=== PATIENT | male | born 1940 | race Hispanic/Latino ===

== ENCOUNTER 2017-01-12 05:27 | Emergency (ER) | payer MEDICARE ==
[2017-01-12 05:38] VITALS: BMI 32.1
--- NOTE | 2017-01-12 06:01 | ED PDOC ---
Arrival/HPI - General Chief Complaint: Abdominal Pain Time Seen by Provider: 01/12/17 05:53 Historian: Patient - History of Present Illness Narrative History of Present Illness (Text): 01/12/17 06:00 Yvon Spangler is a 76 year old male, whose past medical history inclydes diabetes, CHF, hyperlipidemia, and CAD with stenting, who presents to the Emergency department complaining of abdominal pain. Patient states he woke up this morning and attempted to pass his bowel but was unable to. Patient notes he is chronically constipated and only moves his bowel about 1-2 times a week. Patient states he is also experiencing associated lower abdominal pain. Patient notes he has not urinated since yesterday morning. Patient denies any fever, chills, chest pain, shortness of breath, nausea, vomiting, diarrhea, back pain, neck pain, headache, dizziness, or any other complaints. Time/Duration: Other (this morning) Symptom Onset: Gradual Symptom Course: Unchanged Activities at Onset: Rest, Light Context: Home Past Medical History - Provider Review Nursing Documentation Reviewed: Yes - Cardiac Hx Cardiac Disorders: Yes Hx Hypertension: Yes Hx Pacemaker: No Other/Comment: cardiac stents - Pulmonary Hx Respiratory Disorders: No - Neurological Hx Neurological Disorder: No Hx Paralysis: No - HEENT Hx HEENT Disorder: No - Renal Hx Renal Disorder: No - Endocrine/Metabolic Hx Endocrine Disorders: Yes Hx Diabetes Mellitus Type 2: Yes - Hematological/Oncological Hx Blood Disorders: No Hx Blood Transfusions: No Hx Blood Transfusion Reaction: No - Integumentary Hx Dermatological Disorder: No - Musculoskeletal/Rheumatological Hx Musculoskeletal Disorders: No - Gastrointestinal Hx Gastrointestinal Disorders: No - Genitourinary/Gynecological Hx Genitourinary Disorders: Yes Hx Prostate Problems: Yes - Psychiatric Hx Psychophysiologic Disorder: No Hx Emotional Abuse: No Hx Physical Abuse: No Hx Substance Use: No - Anesthesia Hx Anesthesia Reactions: No Hx Malignant Hyperthermia: No - Suicidal Assessment Feels Threatened In Home Enviroment: No Family/Social History - Physician Review Nursing Documentation Reviewed: Yes Family/Social History: No Known Family HX Smoking Status: Unknown If Ever Smoked Hx Alcohol Use: Yes (OCC BEER) Hx Substance Use: No Allergies/Home Meds Allergies/Adverse Reactions: Allergies No Known Allergies Allergy (Verified 09/19/15 12:48) Home Medications: Home Meds Medication Instructions Recorded Confirmed Aspirin [Ecotrin] 81 mg PO DAILY 01/12/17 01/12/17 Atorvastatin [Lipitor] 40 mg PO DAILY 01/12/17 01/12/17 Clopidogrel [Plavix] 75 mg PO DAILY 01/12/17 01/12/17 Furosemide [Lasix] 40 mg PO DAILY 01/12/17 01/12/17 Krill/Om-3/Dha/Epa/Phospho/Ast 1 each PO DAILY 01/12/17 01/12/17 [Krill Oil 1,000 mg Softgel] Lisinopril [Zestril] 2.5 mg PO DAILY 01/12/17 01/12/17 metFORMIN [glucOPHAGE] 500 mg PO BID 01/12/17 01/12/17 Review of Systems - Physician Review All systems were reviewed & negative as marked: Yes - Review of Systems Constitutional: Normal. absent: Fevers Eyes: Normal ENT: Normal Respiratory: Normal. absent: SOB, Cough Cardiovascular: Normal. absent: Chest Pain Gastrointestinal: Abdominal Pain, Constipation Genitourinary Male: Other (+urinary retention) Musculoskeletal: Normal. absent: Back Pain, Neck Pain Skin: Normal. absent: Rash Neurological: Normal. absent: Headache, Dizziness Endocrine: Normal Hemo/Lymphatic: Normal Psychiatric: Normal Physical Exam Vital Signs Reviewed: Yes Vital Signs Temp Pulse Resp BP Pulse Ox 01/12/17 08:50 78 18 112/79 99 01/12/17 07:20 98.9 F 80 20 109/77 99 01/12/17 05:54 98.2 F 102 H 15 110/72 95 Temperature: Afebrile Blood Pressure: Normal Pulse: Regular Respiratory Rate: Normal Appearance: Positive for: Well-Appearing, Non-Toxic, Comfortable Pain Distress: None Mental Status: Positive for: Alert and Oriented X 3 - Systems Exam Head: Present: Atraumatic, Normocephalic Pupils: Present: PERRL Extroacular Muscles: Present: EOMI Conjunctiva: Present: Normal Mouth: Present: Moist Mucous Membranes Neck: Present: Normal Range of Motion Respiratory/Chest: Present: Clear to Auscultation, Good Air Exchange. No: Respiratory Distress, Accessory Muscle Use Cardiovascular: Present: Regular Rate and Rhythm, Normal S1, S2. No: Murmurs Abdomen: Present: Distention, Normal Bowel Sounds. No: Tenderness, Peritoneal Signs Back: Present: Normal Inspection Upper Extremity: Present: Normal Inspection. No: Cyanosis, Edema Lower Extremity: Present: Normal Inspection. No: Edema Neurological: Present: GCS=15, CN II-XII Intact, Speech Normal Skin: Present: Warm, Dry, Normal Color. No: Rashes Psychiatric: Present: Alert, Oriented x 3, Normal Insight, Normal Concentration Medical Decision Making ED Course and Treatment: 01/12/17 06:00 Impression: 76 y/o male complaining of lower abdominal pain, constipation and urinary retention. Plan: -- EKG -- Labs, lipase -- Bladder Scan -- Reassess and disposition Prior Visits: Notes and results from previous visits were reviewed. Progress Notes: Reviewed EKG, sinus tachycardia at 104 bpm. Occasional PVC. LBBB. Non-specific ST/T wave changes. 01/12/17 06:21 Bladder scan performed by RN, shows 999cc. - Lab Interpretations Lab Results: 01/12/17 06:13 01/12/17 06:13 Lab Results 01/12/17 06:50: Urine Color Yellow, Urine Appearance Sl cloudy, Urine pH 6.0, Ur Specific [place] 1.025, Urine Protein 100 H, Urine Glucose (UA) Negative, Urine Ketones Negative, Urine Blood Large H, Urine Nitrate Negative, Urine Bilirubin Small H, Urine Urobilinogen 1.0 H, Ur Leukocyte Esterase Negative, Urine RBC Tntc, Urine WBC 1 - 3, Ur Epithelial Cells 0 - 2, Urine Bacteria Small 01/12/17 06:13: Sodium 141, Potassium 3.7, Chloride 100, Carbon Dioxide 25, Anion Gap 20, BUN 31 H, Creatinine 1.6 H, Est GFR ( Amer) 51, Est GFR ( Non-Af Amer) 42, Random Glucose 221 H, Calcium 9.1, Total Bilirubin 1.9 H, AST 34, ALT 37, Alkaline Phosphatase 87, Total Protein 8.0, Albumin 4.4, Globulin 3.7, Albumin/Globulin Ratio 1.2, Lipase 62 01/12/17 06:13: WBC 16.5 H D, RBC 4.92, Hgb 15.2, Hct 43.5, MCV 88.4, MCH 30.9, MCHC 34.9, RDW 13.1, Plt Count 208, MPV 10.8, Gran % 88.2 H, Lymph % (Auto) 3.3 L, [place] % (Auto) 8.4 H, Eos % (Auto) 0.0 L, Baso % (Auto) 0.1, Gran # 14.57 H, Lymph # 0.5 L, [place] # 1.4 H, Eos # 0.0, Baso # 0.01 - EKG Interpretation Interpreted by ED Physician: Yes Type: 12 lead EKG - Transfer of Care Patient signed out to Dr:: brandon labs and dispo - Scribe Statement Lupe Flor All medical record entries made by the Scribe were at my direction and personally dictated by me. I have reviewed the chart and agree that the record accurately reflects my personal performance of the history, physical exam, medical decision making, and the department course for this patient. I have also personally directed, reviewed, and agree with the discharge instructions and disposition. Disposition/Present on Arrival - Present on Arrival Any Indicators Present on Arrival: No History of DVT/PE: No History of Uncontrolled Diabetes: No Urinary Catheter: No History of Decub. Ulcer: No History Surgical Site Infection Following: None - Disposition Have Diagnosis and Disposition been Completed?: Yes Diagnosis: Urinary retention Disposition: HOME/ ROUTINE Disposition Time: 07:00 Condition: GOOD Discharge Instructions (ExitCare): Urinary Retention in Men (ED) Additional Instructions: PLEASE RETURN TO THE EMERGENCY DEPARTMENT FOR NEW OR WORSENING SYMPTOMS. RETURN RIGHT AWAY IF YOU CANNOT FOLLOW UP WITH YOUR PRIMARY CARE DOCTOR, CLINIC, OR SPECIALIST IN 1-2 DAYS. Prescriptions: Tamsulosin [Flomax] 0.4 mg PO DAILY #4 cap Cephalexin [Keflex] 500 mg PO TID #21 capsule Referrals: Arias Hyde MD [Staff Provider] - Follow up with primary Fredo Juan DO [Primary Care Provider] - Follow up with primary Edenilson Lynn MD [Staff Provider] - Follow up with primary
[2017-01-12 06:48] LABS: ADD MANUAL DIFF? NO
[2017-01-12 07:06] LABS: BASO # 0.01 K/mm3 (0.0-2.0); BASO % 0.1 % (0.0-3.0); GRAN # 14.57 (1.4-6.5); GRAN % 88.2 % (50.0-68.0); HEMATOCRIT 43.5 % (42.0-52.0); LYMPH # 0.5 (1.2-3.4); LYMPH % 3.3 % (22.0-35.0); MEAN CELL VOLUME 88.4 fL (80.0-105.0); MEAN CORPUSCULAR HEMOGLOBIN 30.9 pg (25.0-35.0); MEAN CORPUSCULAR HGB CONC 34.9 g/dl (31.0-37.0); MEAN PLATELET VOLUME 10.8 fl (7.0-11.0); MONO # 1.4 (0.1-0.6); MONO % 8.4 % (1.0-6.0); PLATELET COUNT 208 10^3/uL (120.0-450.0); RED CELL DISTRIBUTION WIDTH 13.1 % (11.5-14.5); WHITE BLOOD COUNT 16.5 10^3/ul (4.5-11.0)
[2017-01-12 07:15] LABS: ALB/GLOB RATIO 1.2 (1.1-1.8); BILIRUBIN,TOTAL 1.9 mg/dL (0.2-1.3); CALCIUM 9.1 mg/dL (8.4-10.5); POTASSIUM 3.7 mmol/L (3.6-5.0)
[2017-01-12 07:25] LABS: URINE BILIRUBIN SMALL (NEGATIVE); URINE BLOOD LARGE (NEGATIVE); URINE GLUCOSE (UA) NEGATIVE (NEGATIVE); URINE KETONE NEGATIVE (NEGATIVE); URINE LEUKOCYTE ESTERASE NEGATIVE Leu/uL (NEGATIVE); URINE PROTEIN 100 mg/dL (<30 mg/dL)
[2017-01-12 07:26] LABS: URINE APPEARANCE SL CLOUDY (CLEAR); URINE COLOR YELLOW (YELLOW)
[2017-01-12 07:36] LABS: URINE BACTERIA SMALL (NEG); URINE EPITHELIAL CELLS 0 - 2 /hpf (0-5); URINE RBC TNTC /hpf (0-2)
--- NOTE | 2017-01-12 07:39 | ED PDOC ---
Physical Exam Vital Signs Reviewed: Yes Vital Signs Temp Pulse Resp BP Pulse Ox 01/12/17 05:54 98.2 F 102 H 15 110/72 95 Temperature: Afebrile Blood Pressure: Normal Pulse: Tachycardic (resolved) Respiratory Rate: Normal Appearance: Positive for: Well-Appearing Pain Distress: None Mental Status: Positive for: Alert and Oriented X 3 Medical Decision Making ED Course and Treatment: 01/12/17 07:39 sign out from overnight, pt with urinary retention, states last time he urinated was yesterday morning. Pt was retaining urine. currently has a catheter in place, denies complaints. 1L urine drained. Cre slightly above pt's baseline UA with no evidence of infection pt reports he has a hx of constipation, abd soft/nt/nd, no n/v pt will be dc'd home with a leg bag was instructed to f/u with urology and his PMD outpatient pt in no distress, aware of and agrees with plan states he feels comfortable being dc'd home Pt states he understands to return to the ER right away for new or worsening symptoms or for inability to f/u with PMD or specialist as instructed. Patient states that he fully agrees with and understands discharge instructions. States that he agrees with the plan and disposition. Verbalized and repeated discharge instructions and plan. I have given the patient opportunity to ask any additional questions. - Lab Interpretations Lab Results: 01/12/17 06:13 01/12/17 06:13 Lab Results 01/12/17 06:50: Urine Color Yellow, Urine Appearance Sl cloudy, Urine pH 6.0, Ur Specific [place] 1.025, Urine Protein 100 H, Urine Glucose (UA) Negative, Urine Ketones Negative, Urine Blood Large H, Urine Nitrate Negative, Urine Bilirubin Small H, Urine Urobilinogen 1.0 H, Ur Leukocyte Esterase Negative, Urine RBC Pending, Urine WBC Pending 01/12/17 06:13: Sodium 141, Potassium 3.7, Chloride 100, Carbon Dioxide 25, Anion Gap 20, BUN 31 H, Creatinine 1.6 H, Est GFR ( Amer) 51, Est GFR ( Non-Af Amer) 42, Random Glucose 221 H, Calcium 9.1, Total Bilirubin 1.9 H, AST 34, ALT 37, Alkaline Phosphatase 87, Total Protein 8.0, Albumin 4.4, Globulin 3.7, Albumin/Globulin Ratio 1.2, Lipase 62 // 06:13: WBC 16.5 H D, RBC 4.92, Hgb 15.2, Hct 43.5, MCV 88.4, MCH 30.9, MCHC 34.9, RDW 13.1, Plt Count 208, MPV 10.8, Gran % 88.2 H, Lymph % (Auto) 3.3 L, [place] % (Auto) 8.4 H, Eos % (Auto) 0.0 L, Baso % (Auto) 0.1, Gran # 14.57 H, Lymph # 0.5 L, [place] # 1.4 H, Eos # 0.0, Baso # 0.01 Disposition/Present on Arrival - Present on Arrival Any Indicators Present on Arrival: No History of DVT/PE: No History of Uncontrolled Diabetes: No Urinary Catheter: No History of Decub. Ulcer: No History Surgical Site Infection Following: None - Disposition Have Diagnosis and Disposition been Completed?: Yes Diagnosis: Urinary retention Disposition: HOME/ ROUTINE Disposition Time: 07:44 Patient Plan: Discharge Condition: GOOD Discharge Instructions (ExitCare): Urinary Retention in Men (ED) Additional Instructions: PLEASE RETURN TO THE EMERGENCY DEPARTMENT FOR NEW OR WORSENING SYMPTOMS. RETURN RIGHT AWAY IF YOU CANNOT FOLLOW UP WITH YOUR PRIMARY CARE DOCTOR, CLINIC, OR SPECIALIST IN 1-2 DAYS. Prescriptions: Cephalexin [Keflex] 500 mg PO TID #21 capsule Tamsulosin [Flomax] 0.4 mg PO DAILY #4 cap Referrals: Fredo Juan DO [Primary Care Provider] - Follow up with primary Edenilson Lynn MD [Staff Provider] - Follow up with primary Arias Hyde MD [Staff Provider] - Follow up with primary
[2017-01-12 09:48] VITALS: TEMP 98.9; O2SAT 99
[2017-01-12 09:49] VITALS: BP 112/79; PULSE 78; RESP 18
--- NOTE | 2017-01-13 02:27 | CARD ---
APPROVED REPORT EKG Measurement Heart [id number] <Conclusion> Sinus tachycardia with occasional premature ventricular complexes and fusion complexes Left bundle branch block Abnormal ECG
== END 2017-01-12 08:50 | disposition home or self-care (01) ==
LOC: ED 05:27
DX: R33.9 Retention of urine, unspecified (principal); E11.9 Type 2 diabetes mellitus without complications; I10 Essential (primary) hypertension; E78.5 Hyperlipidemia, unspecified